=== PATIENT | female | born 2000 | race Hispanic/Latino ===

== ENCOUNTER 2024-06-04 08:50 | Inpatient (IN) | payer MEDICAID ==
[~2024-06-04] VITALS: Ht 154.9 cm; Wt 62.6 kg
[2024-06-04 08:58] VITALS: O2SAT 100
[2024-06-04] MEDS ORDERED: LACTATED RINGERS 1000ML 1,000 ML IV PRN (09:30)
[2024-06-04] MEDS ORDERED: AMPICILLIN 2GM+NS 100ML 100 ML IV SCH (09:30)
[2024-06-04] MEDS ORDERED: AMPICILLIN 1GM+NS 50ML 50 ML IV SCH (09:30)
[2024-06-04 09:34] LABS: APPEARANCE,URINE CLEAR (CLEAR); BILIRUBIN,URINE NEGATIVE (NEGATIVE); COLOR,URINE LIGHT-YELLOW (YELLOW); GLUCOSE, URINE (UA) NEGATIVE (NEGATIVE); KETONES,URINE NEGATIVE (NEGATIVE); LEUKOCYTE ESTERASE ,URINE 500 Leu/uL (NEGATIVE); NITRATE,URINE NEGATIVE (NEGATIVE); OCCULT BLOOD,URINE NEGATIVE (NEGATIVE); PH,URINE 7.5 (5.0-8.0); PROTEIN,URINE NEGATIVE (NEGATIVE); UROBILINOGEN,URINE 0.2 mg/dL (0.2-1.0)
[2024-06-04 09:42] LABS: AMPHET/METH SCREEN,URINE NEGATIVE (NEGATIVE); BARBITURATE SCREEN, URINE NEGATIVE (NEGATIVE); BENZODIAZEPINES SCREEN,URINE NEGATIVE (NEGATIVE); CANNABINOID SCREEN,URINE NEGATIVE (NEGATIVE); COCAINE SCREEN,URINE NEGATIVE (NEGATIVE); OPIATE SCREEN,URINE NEGATIVE (NEGATIVE); PHENCYCLIDINE SCREEN,URINE NEGATIVE (NEGATIVE)
[2024-06-04 09:56] LABS: HEMATOCRIT 33.6 % (36-48); MEAN CORPUSCULAR HEMOGLOBIN 27.3 pg (27.0-33.0); MEAN CORPUSCULAR HGB CONC 32.7 g/dL (32.0-36.0); MEAN CORPUSCULAR VOLUME 83.4 fL (79-99); RED BLOOD CELL COUNT(AUTO) 4.03 MIL/uL (4.00-5.50); RED CELL DISTRIBUTION WIDTH 12.8 % (11.0-15.5); WHITE BLOOD COUNT (AUTO) 8.2 K/uL (4.8-10.8)
[2024-06-04 10:22] LABS: ADD UA MICROSCOPIC YES
[2024-06-04 10:29] LABS: RBC,URINE 0-1 /HPF (0-1); SQUAMOUS EPITHELIAL CELL,UR FEW /HPF (0-2)
[2024-06-04] MEDS ORDERED: LACTATED RINGERS 500 ML 500 ML IV PRN (11:00)
[2024-06-04] MEDS ORDERED: ePHEDrine SULFate 50 MG/ML AMPULE IVP PRN (11:00)
[2024-06-04] MEDS ORDERED: NALoxone HCL 0.4 MG/1 ML ML IV PRN (11:00)
[2024-06-04] MEDS ORDERED: FENTanyl CITRate PF 50 MCG/1 ML 2ML VIAL ONE (11:29)
[2024-06-04] MEDS: DiphenhydrAMINE HCL 50 MG/ML VIAL IV ONE (12:03)
[2024-06-04 12:12] LABS: HIV 1&2 ANTIBODY Non-Reactive (Negative)
[2024-06-04 12:13] LABS: HIV-1 p24 Antigen Non-Reactive (Negative)
[2024-06-04] MEDS ORDERED: WITCH HAZEL 1 PAD TP PRN (13:30)
[2024-06-04] MEDS ORDERED: acetaMINOPHEN WITH coDEINE 1 TAB TAB PO PRN (13:30)
[2024-06-04] MEDS ORDERED: BENZOCAINE/LANOLIN/ALOE VERA 60 ML AEROSOL TP PRN (13:30)
[2024-06-04 16:15] VITALS: BP 115/71; PULSE 64; RESP 18; TEMP 98.3
[2024-06-04] MEDS: LANOLIN 30GM OINTMENT TP PRN (17:43)
[2024-06-04 19:15] VITALS: BP 122/74; PULSE 66; RESP 17; TEMP 97.9
[2024-06-04] MEDS ORDERED: FAMO20TA8 PO (19:24)
[2024-06-04] MEDS ORDERED: PREN1TAB80 PO (19:24)
[2024-06-04] MEDS ORDERED: CALC500T7 PO (19:24)
[2024-06-04] MEDS: ibuPROFEN 600 MG TABLET PO PRN (19:34)
[2024-06-04] MEDS: doCUSate SODIUM 100 MG CAP PO SCH (20:31)
[2024-06-04 23:40] VITALS: BP 106/66; PULSE 65; RESP 18; TEMP 98.2
[2024-06-04] MEDS: acetaMINOPHEN 325 MG TAB PO PRN (23:50)
[2024-06-05 04:25] VITALS: BP 113/69; PULSE 63; RESP 18; TEMP 97.5
[2024-06-05] MEDS ORDERED: IBUP-2697 PO (07:35)
[2024-06-05 08:00] VITALS: BP 96/54; PULSE 66; RESP 18; TEMP 97.4
[2024-06-05] MEDS: FLU VACC TS2024-25(6MOS UP)/PF 45 MCG/0.5 ML ML IM ONE (08:13)
[2024-06-05 08:21] LABS: HEMATOCRIT 28.9 % (36-48); MEAN CORPUSCULAR HGB CONC 33.2 g/dL (32.0-36.0); MEAN CORPUSCULAR VOLUME 81.4 fL (79-99); RED BLOOD CELL COUNT(AUTO) 3.55 MIL/uL (4.00-5.50); RED CELL DISTRIBUTION WIDTH 12.8 % (11.0-15.5); WHITE BLOOD COUNT (AUTO) 8.6 K/uL (4.8-10.8)
[2024-06-05 10:15] VITALS: BP 146/88
[2024-06-05 10:29] LABS: RAPID PLASMA REAGIN NONREACTIVE (NONREACTIVE)
[2024-06-05 12:40] VITALS: BP 99/64; PULSE 71; TEMP 97.8
== END 2024-06-05 15:25 | disposition home or self-care (01) | DRG 560 ==
LOC: EDH 08:50 → LDH 08:51 → OBSVTOIN 08:51 → WSH 16:11
PROVIDERS: ADMIT Obstetrics & Gynecology; ATTEND Obstetrics & Gynecology
PROC: 10E0XZZ Delivery of Products of Conception, External Approach (ICD-10-PCS; principal; 2024-06-04)
PROC: 10907ZC Drainage of Amniotic Fluid, Therapeutic from Products of Conception, Via Natural or Artificial Opening (ICD-10-PCS; 2024-06-04)
PROC: 3E0R3BZ Introduction of Anesthetic Agent into Spinal Canal, Percutaneous Approach (ICD-10-PCS; 2024-06-04)
PROC: 00HU33Z Insertion of Infusion Device into Spinal Canal, Percutaneous Approach (ICD-10-PCS; 2024-06-04)
PROC: 0W8NXZZ Division of Female Perineum, External Approach (ICD-10-PCS; 2024-06-04)
PROC: 3E0234Z Introduction of Serum, Toxoid and Vaccine into Muscle, Percutaneous Approach (ICD-10-PCS; 2024-06-05)
DX: O80 Encounter for full-term uncomplicated delivery (principal); Z37.0 Single live birth; Z23 Encounter for immunization; Z3A.39 39 weeks gestation of pregnancy
CPT/HCPCS: 36415; 76805; 80305; 81001; 85027; 86592; 86701; 86850; 86900; 86901; 87086; 87340; 87390; A4314; J1200; J2795; J3010; Q2035; Q2038